=== PATIENT | female | born 1980 | race Caucasian/White ===

== ENCOUNTER 2016-05-24 20:38 | Emergency (ER) | payer SELFPAY ==
[~2016-05-24] VITALS: Ht 154.9 cm; Wt 109.1 kg
[~2016-05-24 20:38] MED LIST: HUMALOG100 U/ML SC; NOVOLIN N100 U/ML SC; PRENATAL VITAMI1 TAB PO
[2016-05-24 20:45] VITALS: TEMP 99.2
[2016-05-24 21:40] LABS: INFLUENZA B NEGATIVE
[2016-05-24] MEDS ORDERED: ZITHROMAX Z PA250 MG PO (21:48)
[2016-05-24 22:26] VITALS: BP 134/78; PULSE 97
== END 2016-05-24 22:29 | disposition home or self-care (01) ==
LOC: COL.ER 20:38
PROVIDERS: Physician Assistant
DX: J40 Bronchitis, not specified as acute or chronic (principal); E11.9 Type 2 diabetes mellitus without complications; Z79.4 Long term (current) use of insulin

== ENCOUNTER 2017-07-28 08:43 | Emergency (ER) | payer SELFPAY ==
[~2017-07-28] VITALS: Ht 154.9 cm; Wt 109.1 kg
[~2017-07-28 08:43] MED LIST changes: +ZITHROMAX Z PA250 MG PO
[2017-07-28 08:54] VITALS: TEMP 98.7
[2017-07-28 09:46] LABS: BASO % 0.3 % (0.0-2.0); EOS # 0.1 (0.0-0.7); EOS % 0.5 % (0-4.0); GRAN # 10.1 (1.4-6.5); GRAN % 80.7 % (42.2-75.2); HEMATOCRIT 38.5 % (37.0-47.0); HEMOGLOBIN 13.4 g/dl (12.5-16.0); LYMPH # 1.6 (1.2-3.4); LYMPH % 12.4 % (20.0-51.0); MEAN CELL VOLUME 89 fl (80.0-100.0); MEAN CORPUSCULAR HEMOGLOBIN 31 pg (27.0-31.0); MEAN CORPUSCULAR HGB CONC 35 g/dl (33.0-37.0); MEAN PLATELET VOLUME 12.4 fl (7.4-10.4); MONO # 0.7 (0.1-0.6); MONO % 5.8 % (1.7-9.3); PLATELET COUNT 146 K/mm3 (130-400); RED BLOOD COUNT 4.34 M/mm3 (4.10-5.30); REDCELL DISTRIBUTION WIDTH-CV 12.4 % (11.5-14.5)
[2017-07-28 09:54] LABS: CALCIUM 9.1 mg/dL (8.4-10.2); CREATININE, serum 0.63 mg/dL (0.52-1.25)
[2017-07-28] MEDS ORDERED: CLEOCIN HC150 MG/CAP PO (10:58)
[2017-07-28] MEDS ORDERED: NORCO 325 MG-51 TAB PO (10:58)
[2017-07-28 11:21] VITALS: BP 122/93; PULSE 67
== END 2017-07-28 11:23 | disposition home or self-care (01) ==
LOC: COL.ER 08:43
PROVIDERS: Physician Assistant
DX: K12.2 Cellulitis and abscess of mouth (principal); Z90.89 Acquired absence of other organs
CPT/HCPCS: J7030; Q9967

== ENCOUNTER 2019-12-31 11:39 | Emergency (ER) | payer SELFPAY ==
[~2019-12-31] VITALS: Ht 154.9 cm; Wt 113.6 kg
[~2019-12-31 11:39] MED LIST changes: +CLEOCIN HC150 MG/CAP PO; +NORCO 325 MG-51 TAB PO
[2019-12-31 11:43] VITALS: TEMP 99.4
[2019-12-31 12:10] LABS: BASO # 0.1 (0.0-0.2); BASO % 0.6 % (0.0-2.0); EOS # 0.1 (0.0-0.7); EOS % 1.3 % (0-4.0); GRAN # 5.4 (1.4-6.5); GRAN % 69.9 % (42.2-75.2); HEMOGLOBIN 13.3 g/dl (12.5-16.0); LYMPH # 1.8 (1.2-3.4); LYMPH % 22.9 % (20.0-51.0); MEAN CELL VOLUME 89 fl (80.0-100.0); MEAN CORPUSCULAR HEMOGLOBIN 30 pg (27.0-31.0); MEAN CORPUSCULAR HGB CONC 34 g/dl (33.0-37.0); MEAN PLATELET VOLUME 12.2 fl (7.4-10.4); MONO # 0.4 (0.1-0.6); PLATELET COUNT 121 K/mm3 (130-400); RED BLOOD COUNT 4.38 M/mm3 (4.10-5.30); REDCELL DISTRIBUTION WIDTH-CV 12.1 % (11.5-14.5)
[2019-12-31 12:19] LABS: ALANINE AMINOTRANSFERASE 30 U/L (4-34); ALBUMIN 4.4 gm/dL (3.5-5.0); ALKALINE PHOSPHATASE 51 U/L (50-136); ANION GAP 9 mmol/L (7-16); AST,SGOT 26 U/L (15-37); BILIRUBIN,TOTAL 0.6 mg/dL (0.0-1.0); BLOOD UREA NITROGEN 13 mg/dL (7-17); CALCIUM 9.2 mg/dL (8.4-10.2); CARBON DIOXIDE 29 mmol/L (22-30); CHLORIDE 100 mmol/L (98-107); CREATININE, serum 0.65 (0.52-1.25); GLUCOSE 120 mg/dL (74-106); INR 1.1 (0.8-3.0); PROTHROMBIN TIME 12.1 SECONDS (9.7-12.8); SODIUM 138 mmol/L (137-145); TOTAL PROTEIN 7.6 gm/dL (6.4-8.2)
[2019-12-31 12:21] LABS: PARTIAL THROMBOPLASTIN TIME 39.6 SECONDS (26.0-37.0)
[2019-12-31 12:36] LABS: TROPONIN-I < 0.012 ng/mL (0.000-0.035)
[2019-12-31 13:00] VITALS: BP 118/79; PULSE 75
== END 2019-12-31 13:00 | disposition home or self-care (01) ==
LOC: COL.ER 11:39
PROVIDERS: Family Medicine
DX: R00.2 Palpitations (principal)

== ENCOUNTER 2020-07-25 11:26 | Emergency (ER) | payer SELFPAY ==
[~2020-07-25] VITALS: Ht 154.9 cm; Wt 104.5 kg
[2020-07-25 11:35] VITALS: TEMP 98.4
[2020-07-25 12:12] LABS: BASO % 0.5 % (0.0-2.0); EOS # 0.1 (0.0-0.7); EOS % 0.8 % (0-4.0); GRAN # 6.3 (1.4-6.5); GRAN % 82.2 % (42.2-75.2); HEMATOCRIT 42.4 % (37.0-47.0); HEMOGLOBIN 14.2 g/dl (12.5-16.0); LYMPH # 0.9 (1.2-3.4); LYMPH % 11.1 % (20.0-51.0); MEAN CELL VOLUME 91 fl (80.0-100.0); MEAN CORPUSCULAR HEMOGLOBIN 30 pg (27.0-31.0); MEAN CORPUSCULAR HGB CONC 34 g/dl (33.0-37.0); MEAN PLATELET VOLUME 12.8 fl (7.4-10.4); MONO # 0.4 (0.1-0.6); MONO % 5.1 % (1.7-9.3); PLATELET COUNT 127 K/mm3 (130-400); RED BLOOD COUNT 4.67 M/mm3 (4.10-5.30); REDCELL DISTRIBUTION WIDTH-CV 12.7 % (11.5-14.5)
[2020-07-25 12:20] LABS: ALANINE AMINOTRANSFERASE 21 U/L (4-34); ALBUMIN 4.6 gm/dL (3.5-5.0); ALKALINE PHOSPHATASE 55 U/L (50-136); ANION GAP 10 mmol/L (7-16); AST,SGOT 21 U/L (15-37); BILIRUBIN,TOTAL 0.6 mg/dL (0.0-1.0); BLOOD UREA NITROGEN 13 mg/dL (7-17); CARBON DIOXIDE 26 mmol/L (22-30); CHLORIDE 100 mmol/L (98-107); CREATININE, serum 0.66 (0.52-1.25); GLUCOSE 113 mg/dL (74-106); LIPASE 67 U/L (23-300); POTASSIUM 4.3 mmol/L (3.4-5.0); SODIUM 137 mmol/L (137-145); TOTAL PROTEIN 8.5 gm/dL (6.4-8.2)
[2020-07-25 12:33] LABS: TROPONIN-I < 0.012 ng/mL (0.000-0.035)
[2020-07-25 13:32] VITALS: BP 125/84; PULSE 80
== END 2020-07-25 13:32 | disposition home or self-care (01) ==
LOC: COL.ER 11:26
PROVIDERS: Emergency Medicine
DX: R00.2 Palpitations (principal); R07.89 Other chest pain

== ENCOUNTER 2021-03-31 10:42 | Emergency (ER) | payer SELFPAY ==
[~2021-03-31] VITALS: Ht 154.9 cm; Wt 99.1 kg
[2021-03-31 11:39] VITALS: TEMP 98.2
[2021-03-31 13:09] LABS: STREP SCREEN NEGATIVE
[2021-03-31] MEDS ORDERED: PEN-VEE K500 MG PO (13:21)
[2021-03-31 13:38] VITALS: BP 121/91; PULSE 75
== END 2021-03-31 13:40 | disposition home or self-care (01) ==
LOC: COL.ER 10:42
PROVIDERS: Physician Assistant
DX: J02.9 Acute pharyngitis, unspecified (principal); K08.89 Other specified disorders of teeth and supporting structures; Z20.822 Contact with and (suspected) exposure to COVID-19

== ENCOUNTER 2021-05-12 08:32 | Emergency (ER) | payer SELFPAY ==
[~2021-05-12] VITALS: Ht 154.9 cm; Wt 90.5 kg
[~2021-05-12 08:32] MED LIST changes: +PEN-VEE K500 MG PO
[2021-05-12 08:41] VITALS: TEMP 98.9
[2021-05-12 09:50] VITALS: BP 131/72; PULSE 80
== END 2021-05-12 10:00 | disposition home or self-care (01) ==
LOC: COL.ER 08:32
DX: F41.9 Anxiety disorder, unspecified (principal); R07.9 Chest pain, unspecified

== ENCOUNTER 2023-10-11 11:29 | Emergency (ER) | payer SELFPAY ==
[~2023-10-11] VITALS: Ht 154.9 cm; Wt 111.4 kg
[2023-10-11 11:35] VITALS: TEMP 99.1
[2023-10-11 12:38] LABS: HEMATOCRIT 41.1 % (37.0-47.0); HEMOGLOBIN 13.9 g/dl (12.5-16.0); MEAN CELL VOLUME 90 fl (80.0-100.0); MEAN CORPUSCULAR HEMOGLOBIN 30 pg (27-31); MEAN CORPUSCULAR HGB CONC 34 g/dl (33.0-37.0); MEAN PLATELET VOLUME 12.1 fl (7.4-10.4); PLATELET COUNT 171 K/mm3 (130-400); RED BLOOD COUNT 4.57 M/mm3 (4.10-5.30); REDCELL DISTRIBUTION WIDTH-CV 12.3 % (11.5-14.5)
[2023-10-11 13:02] LABS: ALANINE AMINOTRANSFERASE 29 U/L (0-55); ALBUMIN 4.1 g/dL (3.5-5.0); ALKALINE PHOSPHATASE 59 U/L (40-150); ANION GAP 13 mmol/L (7-16); AST,SGOT 20 U/L (5-34); BILIRUBIN,TOTAL 0.6 mg/dL (0.2-1.2); BLOOD UREA NITROGEN 10 mg/dL (7-19); CALCIUM 9.9 mg/dL (8.4-10.2); CHLORIDE 104 mEq/L (98-107); CREATININE, serum 0.78 mg/dL (0.57-1.11); GLUCOSE 119 mg/dL (70-99); PH 6.5 (5.0-8.5); POTASSIUM 4.5 mEq/L (3.5-4.5); SODIUM 138 mEq/L (136-145); TOTAL PROTEIN 7.6 g/dl (6.2-8.1); URINE APPEARANCE CLEAR (CLEAR/HAZY); URINE BLOOD NEGATIVE (NEGATIVE); URINE COLOR YELLOW (YELLOW); URINE GLUCOSE NEGATIVE (NEGATIVE); URINE KETONE NEGATIVE (NEGATIVE); URINE NITRATE NEGATIVE (NEGATIVE); URINE PROTEIN(semi-quant) NEGATIVE (NEGATIVE); URINE UROBILINOGEN 0.2 E.U/dL (0.2-1.0)
[2023-10-11 13:07] LABS: BAND 8 % (0-10); EOSINOPHIL 1 % (0-4); LYMPHOCYTE 22 % (20.0-51.0); NEUTROPHILS 68 % (42.0-75.2); PLATELET ESTIMATE NORMAL (NORMAL)
[2023-10-11 13:10] LABS: TROPONIN-I < 0.010 ng/mL (0.00-0.033)
[2023-10-11 13:21] LABS: LIPASE 25 U/L (8-78)
[2023-10-11 14:05] VITALS: BP 117/64; PULSE 77
[2023-10-11 14:09] LABS: COLLECTION METHOD CLEAN CATCH
== END 2023-10-11 14:05 | disposition home or self-care (01) ==
LOC: COL.ER 11:29
PROVIDERS: Nurse Practitioner
DX: N39.0 Urinary tract infection, site not specified (principal)